=== PATIENT | female | born 1945 | race Caucasian/White ===

== ENCOUNTER 2016-10-24 08:24 | Outpatient (CLI) ==
--- NOTE | 2016-10-24 09:21 | US ---
EXAM: Ultrasound retroperitoneal complete. HISTORY: Chronic kidney disease stage III. COMPARISON: None available. TECHNIQUE: Multiple faulkner scale and color Doppler images. FINDINGS: Right kidney measures 8.6 x 3.4 x 3.8 cm. The left kidney measures 7.9 x 3.9 x 3.8 cm. Corticomedullary differentiation is normal. There is no hydronephrosis. Urinary bladder is unremarkable. IMPRESSION: No acute sonographic abnormality of the kidneys or bladder.
== END 2016-10-24 08:25 | disposition home or self-care (01) ==
LOC: RAD 08:24
PROVIDERS: ATTEND Family Medicine
DX: N18.3 Chronic kidney disease, stage 3 (moderate) (principal)
CPT/HCPCS: 76770